=== PATIENT | female | born 1970 | race Caucasian/White ===

== ENCOUNTER 2022-04-24 02:19 | Outpatient (CLI) | payer OTHER, SELFPAY ==
[2022-04-24 16:13] LABS: Calculated LDL 108 mg/dL (<100); Cholesterol 178 mg/dL (<200); HDL Cholesterol 40 mg/dL (40-60); Triglyceride 152 mg/dL (<150)
== END 2022-04-24 02:20 | disposition home or self-care (01) ==
LOC: LBO 02:19
PROVIDERS: PCP Nurse Practitioner; Visit Provider Nurse Practitioner
DX: Z13.1 Encounter for screening for diabetes mellitus (principal); Z13.6 Encounter for screening for cardiovascular disorders
CPT/HCPCS: 36415; 80061; 83036

== ENCOUNTER → 2022-04-30 02:10 | Outpatient (CLI) | payer OTHER, SELFPAY ==
--- NOTE | 2022-04-30 08:15 | DI.MAMMO_ITS ---
Exam(s) MAMMO SCREENING EXAM: MAMMO SCREENING CLINICAL HISTORY: screening, Z12.39. TECHNIQUE: Bilateral full field digital CC and MLO mammographic images were obtained with 3D tomosyn thesis and utilizing computer aided detection (CAD). COMPARISON: None. This is a baseline mammogram on this 52-year-old patient FINDINGS: There are no significant radiograph findings in the right breast. In the left breast on 3D cc imaging there is an asymmetric density-possible nodule located approximat yury 9 cm in from the nipple. This measures approximately 1.3 x 1 cm. Possibly significant. There a re no malignant-appearing microcalcification groups in this region nor elsewhere in either breast There is no significant architectural distortion nor skin thickening-retraction. IMPRESSION: 1. No radiographic evidence of malignancy in the right breast. Left breast asymmetric density-possible nodule. Spot compression view and ultrasound recommended. BI-RADS Category 0 - Assessment Incomplete: Need additional imaging evaluation Breast Density - Category B - Scattered areas of fibroglandular density Breast density Category C or D implies that the patient has dense breast tissue. Dense breast tissue can make it harder to find cancer on a mammogram. Dense breast tissue is also associated with an incr eased risk of breast cancer. This information about the result of the mammogram report was provided to the patient to raise their awareness. Use this report when you speak with the patient about their risks for breast cancer, which includes their family history. At that time, you may recommend additional screening tests (Ultrasoun d or MRI) as these tests may add significant information. A negative radiographic report should not delay biopsy if a dominant or clinically suspicious mass is present. Up to ten percent of cancers are not identified on mammography. A negative report may reinforce clinical impression. Adenosis and dense breasts may obscure an underlying neoplasm. False positive reports average 6 to 10%. Patient will receive a letter notifying them of these results.
== END ==
PROVIDERS: PCP Nurse Practitioner; Visit Provider Nurse Practitioner
DX: Z12.31 Encounter for screening mammogram for malignant neoplasm of breast (principal); R92.8 Other abnormal and inconclusive findings on diagnostic imaging of breast
CPT/HCPCS: 77063; 77067

== ENCOUNTER → 2022-05-25 00:08 | Outpatient (CLI) | payer OTHER, SELFPAY ==
--- NOTE | 2022-05-25 | DI.US_ITS ---
Exam(s) MG MAMMO SCREEN CALL BACK UNI US BREAST LT LIMITED EXAM: MG MAMMO SCREEN CALL BACK UNI CLINICAL HISTORY: ASYMMETRIC DENSITY LT BREAST. TECHNIQUE: Craniocaudal and mediolateral oblique spot compression digital Mammography views of the l eft breast with Tomosynthesis andleft breast ultrasound. COMPARISON: No exams were available for comparison FINDINGS: Mammography/Tomosynthesis: Spot compression CC and MLO views show a low-density circumscribed ovoid nodule in the central hardware technician ior breast. There are 2 adjacent coarse calcifications. Microcalcifictions: No suspicious pleomorphic-type are seen. Skin Thickening/Nipple Retraction: None. Left breast US: Echotexture: Normal appearance of the glandular tissue. Shadowing: No suspicious foci. Cyst: None. Solid lesions: None seen. Ductal dilation: None. IMPRESSION: 1. No evidence of malignancy is noted. The area of nodularity in the posterior breast has the benign appearance and may represent a fibroadenoma. 2. Six-month follow-up left mammogram recommended.. 3. The findings were discussed with the patient on the date of the examination. BI-RADS Cat 3 - 6 month - Probably Benign Finding: Recommend follow-up imaging in 6 months Breast Density - Category B - Scattered areas of fibroglandular density A negative radiographic report should not delay biopsy if a dominant or clinically suspicious mass is present. Up to ten percent of cancers are not identified on mammography. A negative report may reinforce clinical impression. Adenosis and dense breasts may obscure an underlying neoplasm. False positive reports average 6 to 10%. Patient will receive a letter notifying them of these results.
--- NOTE | 2022-05-25 10:21 | DI.MAMMO_ITS ---
Exam(s) MG MAMMO SCREEN CALL BACK UNI EXAM: MG MAMMO SCREEN CALL BACK UNI CLINICAL HISTORY: ASYMMETRIC DENSITY LT BREAST. TECHNIQUE: Craniocaudal and mediolateral oblique spot compression digital Mammography views of the l eft breast with Tomosynthesis andleft breast ultrasound. COMPARISON: No exams were available for comparison FINDINGS: Mammography/Tomosynthesis: Spot compression CC and MLO views show a low-density circumscribed ovoid nodule in the central cable wirer ior breast. There are 2 adjacent coarse calcifications. Microcalcifictions: No suspicious pleomorphic-type are seen. Skin Thickening/Nipple Retraction: None. Left breast US: Echotexture: Normal appearance of the glandular tissue. Shadowing: No suspicious foci. Cyst: None. Solid lesions: None seen. Ductal dilation: None. IMPRESSION: 1. No evidence of malignancy is noted. The area of nodularity in the posterior breast has the benign appearance and may represent a fibroadenoma. 2. Six-month follow-up left mammogram recommended.. 3. The findings were discussed with the patient on the date of the examination. BI-RADS Cat 3 - 6 month - Probably Benign Finding: Recommend follow-up imaging in 6 months Breast Density - Category B - Scattered areas of fibroglandular density A negative radiographic report should not delay biopsy if a dominant or clinically suspicious mass is present. Up to ten percent of cancers are not identified on mammography. A negative report may reinforce clinical impression. Adenosis and dense breasts may obscure an underlying neoplasm. False positive reports average 6 to 10%. Patient will receive a letter notifying them of these results.
== END ==
PROVIDERS: PCP Nurse Practitioner; Visit Provider Nurse Practitioner Family
DX: Z12.31 Encounter for screening mammogram for malignant neoplasm of breast (principal); R92.8 Other abnormal and inconclusive findings on diagnostic imaging of breast
CPT/HCPCS: 76642; 77063; 77067

== ENCOUNTER 2022-06-22 17:22 | Outpatient (REF) | payer OTHER, SELFPAY ==
--- NOTE | 2022-06-22 16:15 | PAPFT_PTH ---
PATIENT: Carmen Donaldson LOC: [facility] U#:[id number] AGE/SX: 52/F ROOM: RE06/22/[address]: Melany Hernández : 1970 BED: DIS: 06/22/2022 SPEC #: [id number] RECD: 06/25/22 12:38 STATUS: JEMIMA REQ #: [id number] SAPNA: 06/22/22 16:[address]: Melany Hernández DEPT: [facility] Cytology RECD BY: Maria R Harris ENTERED: 06/25/22 12:39 SP TYPE: PAPFT OTHR DR: Danika Hawthorne, PhD SHRIMP PEELING MACHINE TENDER Tissues: 1 - CX/ENDOCX FOR PAP SMEARS Procedures: PAP THIN PREP/UVM Screening HPV DNA PROBE Comments: [id number]
== END 2022-06-22 17:23 | disposition home or self-care (01) ==
LOC: LBN 17:22
PROVIDERS: PCP Nurse Practitioner; Visit Provider Family Medicine
DX: Z12.4 Encounter for screening for malignant neoplasm of cervix (principal); Z11.51 Encounter for screening for human papillomavirus (HPV)
CPT/HCPCS: 88142; 87624

== ENCOUNTER 2022-07-05 09:46 | Outpatient (REF) | payer OTHER, SELFPAY ==
--- NOTE | 2022-07-05 09:30 | ENDO_PTH ---
PATIENT: Carmen Donaldson LOC: [facility] U#:[id number] AGE/SX: 52/F ROOM: RE07/05/[address]: Kaley Jarquin DO : 1970 BED: DIS: 07/05/2022 SPEC #: [id number] RECD: 07/05/22 12:45 STATUS: SOUSelma REQ #: [id number] SAPNA: 07/05/22 09:[address]: Kaley Jarquin DEPT: Surgical Specimen RECD BY: Maria R Harris ENTERED: 07/05/22 12:46 SP TYPE: Endo OTHR DR: Danika Hawthorne, PhD SHINGLES ROOFER HELPER Tissues: 1 - ENDOCERVICAL BX/CURRETTE Procedures: GROSS AND MICRO LEVEL 4 Comments: [id number]
== END 2022-07-05 09:47 | disposition home or self-care (01) ==
LOC: LBN 09:46
PROVIDERS: PCP Nurse Practitioner; Visit Provider Obstetrics & Gynecology
DX: N84.1 Polyp of cervix uteri (principal)
CPT/HCPCS: 88305

== ENCOUNTER 2022-07-27 12:46 | Outpatient (REF) | payer OTHER, SELFPAY ==
--- NOTE | 2022-07-27 08:45 | SKI_PTH ---
PATIENT: Carmen Donaldson LOC: [facility] U#:[id number] AGE/SX: 52/F ROOM: RE07/27/[address]: Melany Hernández : 1970 BED: DIS: 07/27/2022 SPEC #: [id number] RECD: 07/27/22 12:53 STATUS: JEMIMA REQ #: [id number] SAPNA: 07/27/22 08:[address]: Melany Hernández DEPT: Surgical Specimen RECD BY: Maria R Harris ENTERED: 07/27/22 12:53 SP TYPE: ADOLFO CHAUHAN DR: Danika Hawthorne, PhD DIMENSION QUARRY SUPERVISOR Tissues: 1 - SKIN BIOPSY(SHAVE/PUNCH) Procedures: SKIN LEVEL 4 Comments: [id number]
== END 2022-07-27 12:47 | disposition home or self-care (01) ==
LOC: LBN 12:46
PROVIDERS: PCP Nurse Practitioner; Visit Provider Family Medicine
DX: D18.01 Hemangioma of skin and subcutaneous tissue (principal)
CPT/HCPCS: 88305

== ENCOUNTER 2022-11-23 06:09 | Day surgery (SDC) | payer OTHER, SELFPAY ==
[2022-11-23 06:15] VITALS: BP 127/80; PULSE 68; RESP 18; TEMP 36.5; O2SAT 98
[2022-11-23] MEDS: Lactated Ringers 1,000 ML 80 ML IV (06:42)
--- NOTE | 2022-11-23 07:09 | W.ANESPRE ---
General Info Date of Service Date Performed: 11/23/22 Height: 5 ft 4 in Weight: 88.6 kg Body Mass Index (BMI): 33.5 Surgical Procedure: Operation Date: 11/23/22 07:35 Proposed Procedure Side Surgeon p Colonoscopy Rico Taylor MD Meds Allergies and Home Medications Allergies Allergy/AdvReac Type Severity Reaction Status Date / Time No Known Allergies Allergy Verified 11/23/22 06:10 Home Medication Medication Instructions Recorded bisacodyl 5 mg tablet,delayed 5 mg PO ONCE #4 tabs 11/15/22 release (Dulcolax (bisacodyl)) polyethylene glycol 3350 17 17 g PO ONCE #238 grams 11/15/22 gram/dose oral powder Current Visit Medications: Current Medications Generic Name Dose Route Start Last Admin Trade Name Freq PRN Reason Stop Dose Admin Ringer's Solution 1,000 mls @ 80 mls/hr 11/23/22 06:00 11/23/22 06:42 IV 11/23/22 23:59 80 mls/hr INFUSION MARBIN Administration IV Miscellaneous Supplies 1 each 11/23/22 06:00 Iv Access IV 11/23/22 23:59 DIRECTED MARBIN Sodium Chloride 0 ml 11/23/22 06:00 Normal Saline Flush 10 Ml Syr IV 11/23/22 23:59 PRN PRN Sodium Chloride 0 ml 11/23/22 06:00 Normal Saline 10 Ml Vial IJ 11/23/22 23:59 DIRECTED PRN Sterile Water 0 ml 11/23/22 06:00 Water,Injection,Sterile 10 Ml Vial IJ 11/23/22 23:59 DIRECTED PRN PFSH Active Problems Active Problems: Problem Status Onset Code Screening for colon cancer Z12.11 Obesity without serious comorbidity E66.9 Hyperglycemia R73.9 Abnormal mammogram of left breast R92.8 Medical History Medical History Cervical polyp negative pathology COVID-25 July 2021 Surgical History Surgical History S/P appendectomy S/P Tobacco Smoking/Tobacco Use Status: Never Passive smoking exposure: Yes Alcohol Alcohol Intake: never Substance Use Substance use: Never Vital Signs and Lab Results Vital Signs Most Recent Vital Signs in EMR: Most Recent Vital Signs Temp Pulse Resp BP Pulse Ox 36.5 C 68 18 127/80 98 11/23/22 06:15 11/23/22 06:15 11/23/22 06:15 11/23/22 06:15 11/23/22 06:15 Point of Care Results Point of Care Results: POC- Test(urine) Negative 11/23/22 06:33 Lab Results Blood Type / Crossmatch: No Data to Display Complete Blood Count: No Data to Display Complete Metabolic Panel: No Data to Display Liver Function Panel: No Data to Display Coagulation Panel: No Data to Display Cardiac Panel: No Data to Display Arterial Blood Gas: No Data to Display Venous Blood Gas: No Data to Display Pancreas Panel: No Data to Display Thyroid Panel: No Data to Display Infectious Disease: No Data to Display Blood Cultures: No Data to Display Toxicology Panel: No Data to Display Panel: No Data to Display Anesthesia Assessment and Plan Anesthesia History Personal History: No History of Anesthesia Complications Family History: No Family History of Anesthesia Complications Exercise Tolerance Exercise Tolerance: Metabolic Equivalents>4 Pertinent Negatives Pertinent Negatives: No Symptoms of GERD Cardiac & Pulmonary Exam Cardiac Exam: Normal S1/S2 Heart Sounds Pulmonary Exam: Clear Bilateral Breath Sounds Implantable Cardiac Device Does patient have a Pacemaker or an ICD?: No Airway Exam Known Difficult Airway: No Mallampati Class: 2 Mouth Opening: Normal (> 3cm) Thyromental Distance: Greater than 3 cm Neck Range of Motion: Full ROM Neck Circumference: Normal Teeth Condition: Normal Dentition ASA Classification ASA Score: ASA 2 Emergency Case?: No NPO Status NPO Status: NPO Clears >2 hours, Solids >8 hours Status Status: Negative HCG Anesthesia Plan Resuscitation Status: Full Code Anesthesia Technique: General Anesthesia Airway Planned: Natural Airway Pain Management: Surgeon and patient request nerve block Monitors Used: Standard Monitors
[2022-11-23 07:13] VITALS: BMI 33.5
--- NOTE | 2022-11-23 07:29 | COLE_ITS ---
Date of service: 11/23/22 Time of Service: 08:47 Colonoscopy Report Date of procedure: 11/23/22 Pre-op diagnosis general: screening colonoscopy Procedure: 1. COlonoscopy Surgeon: Rico Taylor Anesthesia Type: MAC Complications: None Disposition: same day Indications: Screening colonoscopy Retraction Time: >20 min Findings: Normal colon Procedure Description: After informed consent was obtained, the patient was taken to the procedure room and placed in a left decubitus position. Monitors were applied and a time out was done. The patient's name, date of , procedure, allergies to medications, and metal in their body were reviewed. The patient was then sedated. Once sedated and comfortable, a digital rectal exam was done. External exam was normal. Internal exam revealed normal sphincter tone, and no palpable masses or gross blood. The colonoscope was then introduced and advanced to the cecum under direct visualization with mild difficulty. The ileocecal valve and appendiceal orifice were visualized. The prep was fair.? Extensive lavage was performed to visualize the mucosa.?The scope was then slowly withdrawn over 20 minutes in a circ umferential manner to the rectum. In doing so, no polyps were encountered.? There? was no diiverticulosis noted. The mucosa is pink and healthy.? In the rectum, the scope was retroflexed, and mild internal hemorrhoids were noted.? The scope was straightened and withdrawn from the anus. The patient tolerated the procedure well, and there were no immediate complications.? The patient was taken to the Day Surgery Unit recovery?area in good condition. Follow up: 10 years
[2022-11-23 08:51] VITALS: BP 127/82; PULSE 58; RESP 14; TEMP 35.9; O2SAT 98
--- NOTE | 2022-11-23 08:58 | W.PM.DSUDISC ---
Date of service: 11/23/22 Time of Service: 08:58 Discharge Plan Disposition Patient Disposition: Home Condition: Stable Discharge Details Attending Provider: Rico Taylor Primary Care Provider: Lexii Fulton Home Meds and New Rx's Prescriptions: No Action bisacodyl [Dulcolax (bisacodyl)] 5 mg tablet,delayed release (DR/EC) 5 mg PO ONCE Qty: 4 0RF Rx Instructions: Take according to provider's instructions for colonoscopy prep. polyethylene glycol 3350 17 gram/dose powder 17 g PO ONCE Qty: 238 0RF Rx Instructions: To be taken as directed by prescriber's office for colonoscopy prep. Discharge Instructions Instructions: Colonoscopy (DC) Activity:: Activity as Tolerated Diet:: As Tolerated Discharge Data Discharge Comment: Normal colon. Repeat in 10 years.
--- NOTE | 2022-11-23 09:05 | W.ANESPOSTOP ---
Postoperative Evaluation Date, Time and Location Date Performed: 11/23/22 Time Performed: 09:05 Patient Location: Day Surgery Unit Vital Signs Most Recent Imported Vital Signs: Most Recent Vital Signs Temp Pulse Resp BP Pulse Ox 35.9 C L 58 L 14 127/82 98 11/23/22 08:51 11/23/22 08:51 11/23/22 08:51 11/23/22 08:51 11/23/22 08:51 Pain Score Most Recent Pain Score: Most Recent Pain Score Pain Level 0 11/23/22 08:51 Assessment Mental Status: Awake (Alert & Oriented to Patient Baseline) Airway and Respiratory Function: Patent airway with normal (patient baseline) respiratory exam Cardiovascular Function: Hemodynamically Stable Hydration Status: Adequately Hydrated Nausea & Vomiting: No Nausea or Vomiting Pain: Pt. Denies Any Pain Peripheral Nerve Block: Patient did not receive a nerve block
[2022-11-23 09:24] VITALS: BP 136/82; PULSE 54; RESP 18; TEMP 36.3; O2SAT 97
== END 2022-11-23 09:36 | disposition home or self-care (01) ==
PROVIDERS: PCP Nurse Practitioner Family; Visit Provider Surgery
PROC: 0DJD8ZZ Inspection of Lower Intestinal Tract, Via Natural or Artificial Opening Endoscopic (ICD-10-PCS; CPT 45378; principal; 2022-11-23 07:30)
DX: Z12.11 Encounter for screening for malignant neoplasm of colon (principal)
CPT/HCPCS: 45378; 81025; J2704

== ENCOUNTER 2023-01-18 00:44 | Outpatient (CLI) | payer OTHER, SELFPAY ==
--- NOTE | 2023-01-18 08:30 | DI.MAMMO_ITS ---
Exam(s) MG MAMMO DIAGNOSTIC UNI EXAM: MG MAMMO DIAGNOSTIC UNI CLINICAL HISTORY: f/u left mammo,6 MO F/U, R92.9,ABNL/INCONCLUSIVE MAMMO TECHNIQUE: Cc and MLO mammogram images were performed according to the usual protocol including computer analysis with CAD system, tomosynthesis and C-view imaging. COMPARISON: MG MG MAMMO SCREENING from 04/30/2022 MG MG MAMMO SCREEN CALL BACK UNI from 05/25/2022 US US BREAST LT LIMITED from 05/25/2022 FINDINGS: The left breast is composed of scattered fibroglandular densities, Breast Density category B. No suspicious masses or suspicious microcalcifications are seen. There is a stable low-density milan hly marginated nodule seen in the central posterior left breast. No skin thickening or abnormal axillary lymph nodes are seen. IMPRESSION: BI-RADS category 3- benign findings- resume bilateral screening in 6 months Breast Density - Category B, scattered fibroglandular densities. A negative radiographic report should not delay biopsy if a dominant or clinically suspicious mass is present. Up to ten percent of cancers are not identified on mammography. A negative report may reinforce clinical impression. Adenosis and dense breasts may obscure an underlying neoplasm. False positive reports average 6 to 10%. Patient will receive a letter notifying them of these results.
== END 2023-01-18 01:04 ==
LOC: DI 00:44
PROVIDERS: PCP Nurse Practitioner Family; Visit Provider Family Medicine
DX: R92.8 Other abnormal and inconclusive findings on diagnostic imaging of breast (principal)
CPT/HCPCS: 77061; 77065; G0279

== ENCOUNTER 2024-07-07 02:39 | Outpatient (CLI) | payer OTHER, SELFPAY ==
--- NOTE | 2024-07-07 07:30 | DI.MAMMO_ITS ---
Exam(s) MAMMO SCREENING EXAM: MAMMO SCREENING CLINICAL HISTORY: screening,z12.39 TECHNIQUE: Mammograms were interpreted according to the usual protocol including computer analysis w [employer] CAD system, tomosynthesis and C-view imaging. COMPARISON: 2021 and 2022 FINDINGS: The breasts are composed of scattered fibroglandular densities, Breast Density category B. Left breast: No suspicious masses or suspicious microcalcifications are seen. Stable circumscribed l ow-density nodule in the central left breast. No skin thickening or abnormal axillary lymph nodes are seen. There has been no significant change from prior exams. Right breast: New 5 millimeter asymmetric density in the medial right breast on the CC view. There are few associated calcifications. No skin thickening or abnormal axillary lymph nodes. Spot compre ssion views and ultrasound requested for further evaluation. IMPRESSION: Right breast: BI-RADS Category 0 - Incomplete: Need additional imaging evaluation Left breast: Yearly screening mammography is recommended. Breast Density - Category B, scattered fibroglandular densities. A negative radiographic report should not delay biopsy if a dominant or clinically suspicious mass is present. Up to ten percent of cancers are not identified on mammography. A negative report may reinforce clinical impression. Adenosis and dense breasts may obscure an underlying neoplasm. False positive reports average 6 to 10%. Patient will receive a letter notifying them of these results.
== END 2024-07-07 02:59 ==
LOC: DI 02:40
PROVIDERS: PCP Nurse Practitioner Family; Visit Provider Nurse Practitioner Family
DX: Z12.31 Encounter for screening mammogram for malignant neoplasm of breast (principal)
CPT/HCPCS: 77063; 77067

== ENCOUNTER 2024-07-07 14:51 | Outpatient (CLI) | payer OTHER, SELFPAY ==
[2024-07-07 12:59] LABS: HGB 12.3 g/dL (11.2-15.7); MCHC 34.2 % (32.0-36.0); MCV 91 fL (80-95); MPV 9.9 fL (8.0-11.0); Platelet Count 244 10^3/uL (130-400); RBC 3.97 10^6/uL (3.93-5.22); RDW 12.5 % (11.7-14.6); RDW-SD 41.2 fL; WBC 8.47 10^3/uL (4.4-10.8)
[2024-07-07 13:07] LABS: Hemoglobin A1C 6.1 % (<5.7)
[2024-07-07 14:15] LABS: BUN 11 mg/dL (7-18); CREATININE 0.8 mg/dL (0.55-1.02); Calcium 8.7 mg/dL (8.5-10.1); Calculated LDL 54 mg/dL (<100); Chloride 104 mmol/L (98-107); Cholesterol 142 mg/dL (<200); Estimated GFR 86.96 (mL/min/1.73m2); Glucose 134 mg/dL (74-106); HDL Cholesterol 39 mg/dL (40-60); Potassium 3.6 mmol/L (3.5-5.1); Sodium 140 mmol/L (136-145); TSH (W/Ref FT4) 1.53 uIU/mL (0.36-3.74); Triglyceride 246 mg/dL (<150)
== END 2024-07-07 14:52 | disposition home or self-care (01) ==
LOC: LBO 15:08
PROVIDERS: PCP Nurse Practitioner Family; Visit Provider Nurse Practitioner Family
DX: Z00.00 Encounter for general adult medical examination without abnormal findings (principal); E66.9 Obesity, unspecified; R73.9 Hyperglycemia, unspecified
CPT/HCPCS: 36415; 80048; 80061; 85027; 83036; 84443

== ENCOUNTER 2024-07-09 01:19 | Outpatient (CLI) | payer OTHER, SELFPAY ==
--- NOTE | 2024-07-09 | DI.US_ITS ---
Exam(s) MG MAMMO SCREEN CALL BACK UNI US BREAST RT LIMITED EXAM: MG MAMMO SCREEN CALL BACK UNI CLINICAL HISTORY: F/U MAMMO, NEW 5 MM ASYMMETRIC DENSITY RT BREAST WITH ASSOCIATED. TECHNIQUE: Craniocaudal spot compression digital Mammography views with tomography as well as spot c ompression magnification view of the rightbreast with Tomosynthesis and right breast ultrasound. COMPARISON: MG MG MAMMO SCREENING from 04/30/2022 MG MG MAMMO SCREEN CALL BACK UNI from 05/25/2022 MG MG MAMMO DIAGNOSTIC UNI from 01/18/2023 US US BREAST RT LIMITED from 07/09/2024 FINDINGS: Mammography/Tomosynthesis: Masses: Decreased prominence of area of not nodularity noted on prior exam. Architectural Distortion: None seen. Microcalcifictions: No suspicious pleomorphic-type are seen. Benign-appearing calcifications Skin thickening/Nipple Retraction: None. Right breast US: Echotexture: Normal appearance of the glandular tissue. Shadowing: No suspicious foci. Cyst: 3 millimeter cyst 2 o'clock position, 3 cm from the nipple. Solid lesions: None seen. Ductal dilation: None. IMPRESSION: 1. No evidence of malignancy is noted. 2. Six-month follow-up right mammogram recommended. 3. The findings were discussed with the patient on the date of the examination. BI-RADS Category 3 - 6 month - Probably Benign Finding: Recommend follow-up mammography in 6 months Breast Density - Category B - Scattered areas of fibroglandular density A mammogram that demonstrates density of C or D indicates the patient's breast tissue is dense. Dense breast tissue is very common and is not abnormal, but dense breast tissue can make it harder to find cancer on a mammogram. Also, dense breast tissue may increase their breast cancer risk. This informa tion about the result of the mammogram report was provided to the patient to raise their awareness. U se this report when you speak with the patient about their risks for breast cancer, which includes th eir family history. At that time, you may recommend for more screening tests (Ultrasound or MRI) as t hey might be useful based on their risk. A negative radiographic report should not delay biopsy if a dominant or clinically suspicious mass is present. Up to ten percent of cancers are not identified on mammography. A negative report may reinforce clinical impression. Adenosis and dense breasts may obscure an underlying neoplasm. False positive reports average 6 to 10%. Patient will receive a letter notifying them of these results.
== END 2024-07-09 01:39 ==
LOC: DI 01:19
PROVIDERS: PCP Nurse Practitioner Family; Visit Provider Nurse Practitioner Family
DX: Z12.31 Encounter for screening mammogram for malignant neoplasm of breast (principal); N63.11 Unspecified lump in the right breast, upper outer quadrant
CPT/HCPCS: 76642; 77063; 77067

== ENCOUNTER 2025-07-19 02:06 | Outpatient (CLI) | payer OTHER, SELFPAY ==
--- NOTE | 2025-07-19 08:31 | DI.MAMMO_ITS ---
Exam(s) MAMMO SCREENING EXAM: MAMMO SCREENING CLINICAL HISTORY: screening,z12.39 TECHNIQUE: Mammograms were interpreted according to the usual protocol including computer analysis with CAD system, tomosynthesis and C-view imaging. COMPARISON: 2021 through 2023 FINDINGS: The breasts are composed of scattered fibroglandular densities, Breast Density category B. No suspicious masses or suspicious microcalcifications are seen. No skin thickening or abnormal axillary lymph nodes are seen. There has been no significant change from prior exams. IMPRESSION: BI-RADS Category 1, Negative mammogram Yearly screening mammography is recommended. Breast Density - Category B - There are scattered areas of fibroglandular density. Breast density Category C or D implies that the patient has dense breast tissue. Dense breast tissue can make it harder to find cancer on a mammogram. Dense breast tissue is also associated with an increased risk of breast cancer. This information about the result of the mammogram report was provided to the patient to raise their awareness. Use this report when you speak with the patient about their risks for breast cancer, which includes their family history. At that time, you may recommend additional screening tests (Ultrasound or MRI) as these tests may add significant information. A negative radiographic report should not delay biopsy if a dominant or clinically suspicious mass is present. Up to ten percent of cancers are not identified on mammography. A negative report may reinforce clinical impression. Adenosis and dense breasts may obscure an underlying neoplasm. False positive reports average 6 to 10%. Patient will receive a letter notifying them of these results.
== END 2025-07-19 02:26 ==
LOC: DI 02:06
PROVIDERS: PCP Nurse Practitioner Family; Visit Provider Nurse Practitioner Family
DX: Z12.31 Encounter for screening mammogram for malignant neoplasm of breast (principal)
CPT/HCPCS: 77063; 77067

== ENCOUNTER 2025-07-19 09:56 | Outpatient (CLI) | payer OTHER, SELFPAY ==
[2025-07-19 09:01] LABS: ESR 13 mm/hr (0-30)
[2025-07-19 09:12] LABS: Hemoglobin A1C 5.9 % (<5.7)
[2025-07-19 09:49] LABS: ALT 36 U/L (14-59); AST 24 U/L (15-37); Albumin 3.9 g/dL (3.4-5.0); Alkaline Phosphatase 100 U/L (46-116); Anion Gap 11.3 mmol/L (3-11); BUN 15 mg/dL (7-18); Bilirubin, Total 0.4 mg/dL (0.2-1.0); C-Reactive Protein 1.13 mg/dL (<or=0.5); CO2 25.7 mmol/L (21.0-32.0); Calcium 9.2 mg/dL (8.5-10.1); Chloride 105 mmol/L (98-107); Estimated GFR 105.28 (mL/min/1.73m2); Glucose 103 mg/dL (74-106); Potassium 4.0 mmol/L (3.5-5.1); Sodium 142 mmol/L (136-145); Total Protein 7.4 g/dL (6.4-8.2); Uric Acid 6.8 mg/dL (2.6-6.0)
[2025-07-19 09:59] LABS: Calculated LDL 95 mg/dL (<100); Cholesterol 172 mg/dL (<200); HDL Cholesterol 33 mg/dL (>or=50); Triglyceride 220 mg/dL (<150)
== END 2025-07-19 09:57 | disposition home or self-care (01) ==
LOC: LBO 09:59
PROVIDERS: PCP Nurse Practitioner Family; Visit Provider Nurse Practitioner Family
DX: Z00.00 Encounter for general adult medical examination without abnormal findings (principal); R73.9 Hyperglycemia, unspecified; E66.9 Obesity, unspecified; M25.40 Effusion, unspecified joint; M25.541 Pain in joints of right hand; M25.542 Pain in joints of left hand
CPT/HCPCS: 36415; 80053; 80061; 85652; 83036; 84550; 86038; 86140; 86431